=== PATIENT | male | born 1985 | race Caucasian/White ===

== ENCOUNTER 2023-03-29 08:25 | Outpatient (RCR) | payer BC, SELFPAY | END 2023-03-29 23:59 | disposition home or self-care (01) | LOC: RPT 08:25 | PROVIDERS: ATTENDING PHYSICIAN Physician Assistant | DX: S49.91XD Unspecified injury of right shoulder and upper arm, subsequent encounter (principal); Z73.6 Limitation of activities due to disability | CPT/HCPCS: 97110; 97162 ==

== ENCOUNTER 2023-04-20 18:04 | Emergency (ER) | payer BC, SELFPAY ==
[2023-04-20 18:12] VITALS: BP 146/95; BMI 32.1
[2023-04-20 18:33] LABS: % Basophils 0.4 % (0-2); % Eosinophils 1.6 % (0-6); % Immature Granulocytes 0.4 % (0-0.5); % Lymphocytes 29.4 % (20.5-51.1); % Monocytes 6.3 % (1.7-9.3); % Neutrophils 61.9 % (42.2-75.2); Absolute Basophils 0.1 10^3/uL (0-0.2); Absolute Eosinophils 0.2 10^3/uL (0-0.7); Absolute Immature Granulocytes 0.1 10^3/uL (0-0.05); Absolute Monocytes 0.8 10^3/uL (0.1-0.6); Absolute Neutrophils 8.3 10^3/uL (1.4-6.5); Hematocrit 43.7 % (39.0-52.0); Hemoglobin 15.9 g/dL (13.0-18.0); Mean Corp Hgb Conc. 36.4 g/dL (33.0-37.0); Mean Corpuscular Hgb 30.6 pg (27.0-31.0); Mean Platelet Volume 9.8 fL (7.4-10.4); Nucleated Red Blood Cells % 0 % (-); Platelet Count 348 10^3/uL (130-400); Red Cell Dist. Width 11.9 % (11.5-14.5); White Blood Cell Count 13.4 10^3/uL (4.8-10.8)
[2023-04-20 18:43] LABS: INR 0.99; PT 12.9 Sec (11.4-14.6)
[2023-04-20 18:44] LABS: APTT 26.6 Sec (23.4-35.0)
[2023-04-20 19:00] LABS: ALT (SGPT) 67 U/L (0-50); AST (SGOT) 33 U/L (17-59); Albumin 4.8 g/dl (3.5-5.0); Alkaline Phosphatase 59 U/L (38-126); Blood Urea Nitrogen 17 mg/dl (9-20); Carbon Dioxide 26 mmol/L (22-30); Chloride 96 mmol/L (98-107); Estimated Creatinine Clearance 108 ml/min; Glucose 114 mg/dl (70-99); Potassium 4.6 mmol/L (3.5-5.1); Sodium 133 mmol/L (135-145); Total Bilirubin 0.7 mg/dl (0.2-1.3); Total Protein 7.5 g/dl (6.3-8.2); eGFR > 60.00
[2023-04-20 20:00] VITALS: BP 121/80
[2023-04-20 21:00] VITALS: BP 130/80
[2023-04-20 22:00] VITALS: BP 120/89
[2023-04-20 22:56] VITALS: BP 117/87
[2023-04-20 23:00] VITALS: BP 121/86
[2023-04-21] VITALS: BP 119/78
--- NOTE | 2023-04-21 00:05 | ED.GENMED ---
History of Present Illness
General
Chief Complaint: Rectal Bleeding
Source: patient and significant other
Exam Limitations: none
Time Seen by Provider: 04/20/23 20:28
Travel History
Have you had any contact with someone who has COVID-19?: No
Do you have any symptoms of coronavirus? Fever > 100 degrees, chills, cough, shortness of breath, sore throat, loss of taste or smell, muscle aches, or headache?: No
History of Present Illness
History of Present Illness:
37-year-old male who presents after a large amount of blood into the toilet earlier tonight. Patient admits that over some weeks has had intermittent bleeding that he thought was from wiping too hard. Today a large amount of blood. Patient has
had a little bit of abdominal discomfort but not much. He states he has noticed that he has a little bit less of an appetite but has not lost any he is adopted so does not know his family history. No fevers or redness. No chest pain or shortness
of breath.
Past History
Past History
ED Past Medical History: Other (WPW, hypertension, prediabetic)
ED Past Surgical History: Cardiac (Ablation)
Phy Exam
Physical Exam
Physical Exam:
CONSTITUTIONAL Patient alert and oriented to person, place and time. Well-appearing. Vital signs reviewed.
HEAD atraumatic, normocephalic.
EYES eyelids normal to inspection, Pupils equally round and reactive to light, Extraocular muscles intact, Conjunctiva normal, Sclera normal.
NECK normal range of motion, Trachea midline, no jugular venous distention.
RESPIRATORY CHEST No respiratory distress noted, Chest expansion equal, Bilateral breath sounds clear.
CARDIOVASCULAR regular rate and rhythm, Heart sounds normal.
ABDOMEN abdomen nontender, Bowel sounds normal. No distention.
Rectal exam small hemorrhoid noted at the 6 o'clock position. There is some small fissures noted about the 12 o'clock position. No obvious bleeding during exam. No bleeding from the hemorrhoid. Anoscopy deferred
BACK normal inspection, no obvious deformities
UPPER EXTREMITY range of motion normal, Motor strength normal, no cyanosis, no edema.
LOWER EXTREMITY range of motion normal, Motor strength normal, no cyanosis, no edema.
NEURO Speech normal, No focal motor deficits, Bina coma scale 15, Memory normal, Cranial Nerves intact to screening exam.
SKIN skin warm, dry, and normal in color.
PSYCHIATRIC patient oriented to person place and time, Normal affect.
Course
Orders/Labs/Results
Orders:
Orders
04/20/23 18:17
EKG [Electrocardiogram (*1)] Urgent
Reason for Study: Fatigue / Weakness
04/20/23 18:18
EKG- Treatment ONCE
04/20/23 18:24
Type+Screen Urgent
Complete Blood Count/With Diff Urgent
Comprehensive Metabolic Panel Urgent
PTT Urgent
Prothrombin Time Urgent
04/20/23 21:19
CT Abd/Pel (IV only)-DH only Urgent
Comment:
Reason For Exam: lower abd discomfort, rectal bleeding
Abnormal Lab Results
04/20/23
18:24
WBC 13.4 H 10^3/uL
(4.8-10.8)
Abs Immat Gran (auto) 0.1 H 10^3/uL
(0-0.05)
Absolute Neuts (auto) 8.3 H 10^3/uL
(1.4-6.5)
Absolute Lymphs (auto) 4.0 H 10^3/uL
(1.2-3.4)
Absolute Monos (auto) 0.8 H 10^3/uL
(0.1-0.6)
Sodium 133 L mmol/L
(135-145)
Chloride 96 L mmol/L
(98-107)
Glucose 114 H mg/dl
(70-99)
ALT 67 H U/L
(0-50)
04/20/23 18:24
04/20/23 18:24
Vital Signs
Initial and Last Documented VS:
Initial Vital Signs
Temp Pulse Resp BP Pulse Ox
98.5 F 87 16 146/95 99
04/20/23 18:12 04/20/23 18:12 04/20/23 18:12 04/20/23 18:12 04/20/23 18:12
Last Documented Vital Signs
Temp Pulse Resp BP Pulse Ox
98.5 F 85 14 121/86 99
04/20/23 18:12 04/20/23 23:45 04/20/23 23:45 04/20/23 23:00 04/20/23 18:12
MDM/Problems Addressed
MDM/Problems Addressed:
Rectal bleeding, anal fissure, hemorrhoid
*Radiology
Radiology exam reviewed: preliminary read by ED provider (No free air, no signs of colitis) and radiology read reviewed
*Pulse Oximetry
Patient hypoxic: no
*Critical Care Note
Total Time (30-74mins, 75-104mins- exclusive of procedures): Not Applicable
Data Reviewed
Source: patient
Further Testing Considered But Not Given:
Considered endoscopy but no further bleeding
Patient Management
Discussion with other providers: [employer] (Case discussed with GI. I recommended outpatient follow)
Escalation/DeEscalation of care consider admission/obs:
37-year-old male. Hemoglobin stable. Question whether this is from the fissures or other cause such as internal hemorrhoids. Likely does need colonoscopy to rule out inflammatory bowel disease. Okay for discharge
ED Attending Note
-
Portions of this chart may have been created with voice recognition software.� Occasional wrong word or��sound alike� substitutions may have occurred due to the inherent limitations of voice recognition software.
Discharge Plan
Departure
Patient Disposition: Home (Routine Discharge)
Date of Disposition: 04/21/23
Time of Disposition: 00:08
Patient with high blood pressure during this ER visit?: No
Discharge Problem:
Bright red rectal bleeding, Acute anal fissure
Instructions: Anal Fissure (DC), Bloody Stools, Adult (DC)
Prescriptions:
No Action
atorvastatin 10 mg Tablet
10 mg PO HS
methylphenidate HCl 10 mg Tablet
10 mg PO BID
lisinopril 20 mg Tablet
20 mg PO BID
Theragen Tablet
1 tab PO DAILY PRN (Reason: supplement)
esomeprazole magnesium 20 mg Capsule,Delayed Release(Dr/Ec)
20 mg PO ONCE PRN (Reason: stomach discomfort)
L[place] Mushroom
450 mg PO DAILY
[place] 3 Triple Strength
1 cap PO DAILY
Referrals:
Marco A Reese MD [Active] -
Luis Alfredo Morgan PA-C [Family Provider] -
Activity Restrictions/Additional Instructions:
Please see your doctor or gastroenterology next 3 to 5 days for follow-up and reevaluation. Further workup should include a colonoscopy. Return for increased bleeding, abdominal pain, intractable vomiting or any other concerns.
Interventions
Interventions:
*Risk Screen - Suicide Last Done: 04/20/23 18:12
*General Assessment Last Done: 04/20/23 22:44
*Neglect/Abuse Screening Last Done: 04/20/23 18:12
ED- Fall Risk Assessment Last Done: 04/20/23 22:44
*ED COVID-19 Vaccine History Last Done: 04/20/23 18:12
LW-P[place]vein-[place] Assessment Last Done: 04/20/23 20:00
ED- Cardiac Assessment Last Done: 04/20/23 20:00
ED- Pulmonary Assessment Last Done: 04/20/23 20:00
== END 2023-04-21 00:44 | disposition home or self-care (01) ==
LOC: EMR 18:04
PROVIDERS: EMERGENCY PHYSICIAN Emergency Medicine; FAMILY PHYSICIAN Physician Assistant
DX: K62.5 Hemorrhage of anus and rectum (principal); K60.0 Acute anal fissure; I10 Essential (primary) hypertension
CPT/HCPCS: 99284; 74177; 80053; 85025; 85610; 85730; 86850; 86900; 86901; 93005; Q9967

== ENCOUNTER → 2023-05-17 10:18 | Outpatient (REF) | payer BC, SELFPAY ==
[2023-05-17 11:31] LABS: % Basophils 0.4 % (0-2); % Eosinophils 1.5 % (0-6); % Immature Granulocytes 0.5 % (0-0.5); % Monocytes 6.8 % (1.7-9.3); % Neutrophils 65.8 % (42.2-75.2); Absolute Eosinophils 0.1 10^3/uL (0-0.7); Absolute Monocytes 0.5 10^3/uL (0.1-0.6); Absolute Neutrophils 5.2 10^3/uL (1.4-6.5); Hematocrit 43.5 % (39.0-52.0); Hemoglobin 15.5 g/dL (13.0-18.0); Mean Corp Hgb Conc. 35.6 g/dL (33.0-37.0); Mean Corpuscular Hgb 30.8 pg (27.0-31.0); Mean Corpuscular Volume 86.5 fL (80.0-94.0); Nucleated Red Blood Cells % 0 % (-); Platelet Count 292 10^3/uL (130-400); Red Blood Cell Count 5.03 10^6/uL (4.70-6.10); Red Cell Dist. Width 11.7 % (11.5-14.5)
[2023-05-17 12:03] LABS: ALT (SGPT) 55 U/L (0-50); AST (SGOT) 29 U/L (17-59); Albumin 4.6 g/dl (3.5-5.0); Alkaline Phosphatase 66 U/L (38-126); Blood Urea Nitrogen 15 mg/dl (9-20); Calcium 9.6 mg/dl (8.4-10.2); Carbon Dioxide 26 mmol/L (22-30); Chloride 99 mmol/L (98-107); Glucose 102 mg/dl (70-99); HDL Cholesterol 45 mg/dl; LDL Cholesterol, Calculated 113 mg/dl; Potassium 4.6 mmol/L (3.5-5.1); Sodium 135 mmol/L (135-145); Total Bilirubin 0.7 mg/dl (0.2-1.3); Total Cholesterol 181 mg/dl (50-199); Total Protein 7.2 g/dl (6.3-8.2); Triglyceride 117 mg/dl (10-149); Very Low Density Lipoprotein 23 mg/dl (0-30); eGFR > 60.00
[2023-05-17 12:20] LABS: Free T4 1.02 ng/dl (0.78-2.19)
[2023-05-17 12:33] LABS: TSH 1.32 uIU/ml (0.47-4.68)
[2023-05-18 17:12] LABS: % Free Testosterone 2.3 % (1.6-2.9); Free Testosterone 78 pg/mL (47-244); Sex Hormone Binding Globulin 19 nmol/L (17-56); Total Testosterone 334 ng/dL (300-1080)
== END ==
LOC: REG 10:18
PROVIDERS: ATTENDING PHYSICIAN Physician Assistant
DX: Z00.00 Encounter for general adult medical examination without abnormal findings (principal); Z13.9 Encounter for screening, unspecified; D17.1 Benign lipomatous neoplasm of skin and subcutaneous tissue of trunk; I10 Essential (primary) hypertension; F90.0 Attention-deficit hyperactivity disorder, predominantly inattentive type; F41.1 Generalized anxiety disorder; R73.03 Prediabetes; E78.2 Mixed hyperlipidemia; E66.09 Other obesity due to excess calories; Z68.32 Body mass index [BMI] 32.0-32.9, adult; R79.89 Other specified abnormal findings of blood chemistry
CPT/HCPCS: 36415; 80053; 80061; 82306; 83036; 84270; 84402; 84403; 84439; 84443; 85025